=== PATIENT | male | born 2000 | race Caucasian/White ===

== ENCOUNTER 2025-02-13 22:32 | Emergency (ER) | payer BC, SELFPAY ==
[2025-02-13 22:51] VITALS: BP 160/92
--- NOTE | 2025-02-14 01:29 | ED.GENMED ---
History of Present Illness
General
Chief Complaint: Skin Surface Trauma
Source: patient
Exam Limitations: none
Time Seen by Provider: 02/14/25 01:00
History of Present Illness
History of Present Illness:
See MDM
Past History
Past History
ED Past Medical History: None
ED Past Surgical History: None
Social History
Tobacco: Non-smoker
Alcohol: None
Phy Exam
Physical Exam
Physical Exam:
See MDM
Course
Vital Signs
Initial and Last Documented VS:
Initial Vital Signs
Temp Pulse Resp BP Pulse Ox
98.3 F 68 16 160/92 98
02/13/25 22:51 02/13/25 22:51 02/13/25 22:51 02/13/25 22:51 02/13/25 22:51
Last Documented Vital Signs
Temp Pulse Resp BP Pulse Ox
98.3 F 68 16 160/92 98
02/13/25 22:51 02/13/25 22:51 02/13/25 22:51 02/13/25 22:51 02/14/25 01:31
Procedures
Laceration Closure
left lateral thenar eminence :
Status of Wound: clean
Size of Wound in cm: 1.5
Description of Wound Edges: sharp
Preparation: cleaned with Betadine
Anesthesia: 1% Lidocaine with epi
Revision/Debridement: routine- no revision
Wound exploration: explored to base- no FB
Type of Closure: single layer closure
Skin Closure Material: 4-0 nylon
Number of sutures: 3
MDM/Problems Addressed
Differential Diagnosis Includes:
Note:
CHIEF COMPLAINT(S)
Hand cut.
HISTORY OF PRESENT ILLNESS
The patient is a 24-year-old male who presented with a hand cut. The injury occurred earlier today and is described as superficial. The patient reports experiencing pain, but he is able to move his fingers without any difficulty. There was bleeding
initially, which has since subsided. The cut occurred on the right hand, which the patient uses dominantly. The area was not cleaned by the patient at home, and he was advised that hands are prone to infections. The patient expressed a desire for a
simple intervention, such as the use of tissue adhesive (glue), rather than sutures.
PHYSICAL EXAM
General: Alert, no acute distress.
Skin: 1.5 cm laceration to the left thenar eminence. No ligamentous involvement. Distal fingers neurovascular intact
Head: Normocephalic, atraumatic
Neck: Appears supple, trachea midline.
Eyes, Ears, Nose, Mouth, and Throat: Moist mucous membranes
Cardiovascular: No signs of cyanosis
Respiratory: Respirations are non-labored.
Abdomen: Non-distended
Musculoskeletal: No deformities
Neurological: No focal neurological deficit observed.
Psychiatric: Cooperative, appropriate mood and affect.
PLAN
Clean the wound with betadine. Reposition the protruding tissue back into the wound. Place stitches. The patient will be started on prophylactic oral antibiotics due to the risk of infection associated with hand wounds. The patient was not required
to take the antibiotics unless signs of infection develop.
DIFFERENTIAL DIAGNOSIS
- Laceration
- Superficial skin infection
- Soft tissue infection
- Tendon injury
- Nerve injury
- Foreign body in wound
- Abrasion
- Contusion
- Degloving injury
- Fracture
SUMMARY OF ENCOUNTER
The patient was seen for a superficial hand cut. The injury was evaluated, and no significant underlying damage was noted. The superficial nature of the cut allowed for closure with Steri-Strips and tissue adhesive. Due to the high risk of
infection, particularly given the location on the hand, the patient was advised on the use of prophylactic antibiotics.
MEDICATION RECONCILIATION
Prescription for prophylactic oral antibiotics to prevent infection.
MEDICAL DECISION MAKING
- Number and Complexity of Problems Addressed: Superficial hand laceration with a risk of infection.
- Risk: Prescription medication was considered for the prevention of infection. Risks associated with not treating include potential for infection development in a high-risk area.
Disposition:
SUMMARY OF ENCOUNTER
A 24-year-old male presented to the emergency department with a 1.5 cm superficial laceration on his right thenar eminence. The patient reported pain but denied any difficulty with finger movement. Examination revealed the wound to be gaping with no
evidence of ligamentous injury, and the hands nerve function was intact. Despite considering the application of tissue adhesive, the decision was made to close the wound with three sutures due to the gap. Given the location and mechanism of injury,
there was a concern for potential infection.
PLAN
Clean the wound with betadine. Apply three sutures instead of tissue adhesive due to the necessity for better closure. Start the patient on amoxicillin-clavulanate (Augmentin) prophylactically to prevent infection, due to the high risk associated
with the hand wound. The patient is advised to monitor for signs of infection and instructed to return for suture removal in approximately 10 days.
PATIENT EDUCATION AND COUNSELING
The patient was advised on the importance of monitoring the wound for any signs of infection such as increased redness, swelling, warmth, or pus discharge. He was counseled on keeping the wound clean and dry. The patient was informed about the
prophylactic use of antibiotics and the necessity of completing the prescribed course.
FOLLOW-UP INSTRUCTIONS
The patient is advised to return for suture removal in approximately 10 days and to seek medical attention immediately if signs of infection develop.
MEDICATION RECONCILIATION
Prescription provided for amoxicillin-clavulanate (Augmentin) to prevent potential infection due to the hand wound.
MEDICAL DECISION MAKING
- Number and Complexity of Problems Addressed: Superficial hand laceration with a risk of infection.
- Data:
Category 1: Tests and documents were not ordered as the clinical exam was sufficient for diagnosis.
- Risk: Prescription medication was prescribed for infection prophylaxis.
DIAGNOSIS
Superficial laceration of right hand thenar eminence, S61.410A.
*Pulse Oximetry
SaO2: 98
Oxygen Mode of Delivery: Room air
Patient hypoxic: no
*Critical Care Note
Total Time (30-74mins, 75-104mins- exclusive of procedures): Not Applicable
ED Attending Note
-
Portions of this chart may have been created with voice recognition software.� Occasional wrong word or��sound alike� substitutions may have occurred due to the inherent limitations of voice recognition software.
Discharge Plan
Departure
Patient Disposition: Home (Routine Discharge)
Date of Disposition: 02/14/25
Time of Disposition: 01:34
Patient with high blood pressure during this ER visit?: Yes
Discharge Problem:
Hand laceration
Instructions: Laceration Repair With Stitches (DC), BLOOD PRESSURE
Prescriptions:
New
clindamycin HCl 300 mg capsule
300 mg PO TID 5 Days Qty: 15 0RF
Referrals:
Riki Zamarripa MD [Family Provider, Family Practice]
Activity Restrictions/Additional Instructions:
Keep wound clean and dry, change dressing if it becomes soiled or wet. Watch for signs of infection: fever over 100.5', increasing pain, red streaks around wound, swelling, drainage of pus, or bad smell. If any of these happen, return to ED
promptly. Return to ED or make an appointment with your doctor to have the 3 sutures removed in 7-10 days. All wounds may scar, however you may reduce the appearance of scarring by avoiding sun exposure to the scar and applying skin moisturizer
with spf protection to the scar once the wound is healed.
Interventions
Interventions:
*Risk Screen - Suicide Last Done: 02/14/25 00:00
*General Assessment Last Done: 02/14/25 00:00
*Neglect/Abuse Screening Last Done: 02/14/25 00:00
*ED- Fall Risk Assessment Last Done: 02/14/25 00:00
*ED COVID-19 Vaccine History Last Done: 02/14/25 00:00
*ED Influenza Vaccine History Last Done: 02/14/25 00:00
*Nursing Disposition Last Done: 02/14/25 01:45
ED-Skin Assessment Last Done: 02/13/25 23:52
Discharge Date and Time
Discharge Date/Time: 02/14/25 01:45
Print Language: FRISIAN
== END 2025-02-14 01:45 | disposition home or self-care (01) ==
LOC: EMR 22:32
PROVIDERS: EMERGENCY PHYSICIAN Student in an Organized Health Care Education/Training Program; FAMILY PHYSICIAN Family Medicine
DX: S61.411A Laceration without foreign body of right hand, initial encounter (principal); X58.XXXA Exposure to other specified factors, initial encounter; R03.0 Elevated blood-pressure reading, without diagnosis of hypertension
CPT/HCPCS: 99283; 12001

== ENCOUNTER 2025-02-14 08:34 | Emergency (ER) | payer BC, SELFPAY ==
[2025-02-14 08:41] VITALS: BP 137/92
--- NOTE | 2025-02-14 09:12 | ED.SKININJ ---
HPI-Injury
General
Chief Complaint: Skin Surface Trauma
Source: patient
Exam Limitations: none
Time Seen by Provider: 02/14/25 09:01
History of Present Illness-Injury
Initial Injury comments:
24-year-old male presents for reevaluation. He was seen here yesterday for a laceration to the thenar eminence of his left hand. He presented today with complaints of nonblanchable skin around the wound and some associated numbness around the
wound. He denies any function to the thumb or numbness to the thumb.
Past History
Past History
ED Past Medical History: None
ED Past Surgical History: None
Social History
Tobacco: Non-smoker
Alcohol: None
Phy Exam
Physical Exam
Physical Exam:
General: Well-appearing male no acute respiratory distress
Skin: 3 intact Ethilon sutures left thenar eminence. There is a hematoma underneath the wound. The skin is blanchable. He has full function of the left thumb and full sensation of the left thumb. No erythema or lymphangitic streaking
Vascular: Brisk cap refill all fingers left hand
Course
Vital Signs
Initial and Last Documented VS:
Initial Vital Signs
Temp Pulse Resp BP Pulse Ox
98.3 F 86 17 137/92 99
02/14/25 08:41 02/14/25 08:41 02/14/25 08:41 02/14/25 08:41 02/14/25 08:41
Last Documented Vital Signs
Temp Pulse Resp BP Pulse Ox
98.3 F 86 17 137/92 99
02/14/25 08:41 02/14/25 08:41 02/14/25 08:41 02/14/25 08:41 02/14/25 08:41
MDM/Problems Addressed
Differential Diagnosis Includes:
Overall patient looks well upon assessment here. I suspect symptoms today were related to the hematoma that developed under the wound. There is no evidence of vascular or nervous compromise.
Reassured patient. Dressing reapplied. Stable for discharge
*Pulse Oximetry
SaO2: 99
Oxygen Mode of Delivery: Room air
Patient hypoxic: no
*Critical Care Note
Total Time (30-74mins, 75-104mins- exclusive of procedures): Not Applicable
ED Attending Note
-
Portions of this chart may have been created with voice recognition software.� Occasional wrong word or��sound alike� substitutions may have occurred due to the inherent limitations of voice recognition software.
Discharge Plan
Departure
Patient Disposition: Home (Routine Discharge)
Date of Disposition: 02/14/25
Time of Disposition: 09:14
Patient with high blood pressure during this ER visit?: No
Discharge Problem:
Hand laceration
Instructions: Wound Care (DC)
Prescriptions:
No Action
clindamycin HCl 300 mg capsule
300 mg PO TID 5 Days Qty: 15 0RF
Referrals:
Riki Zamarripa MD [Family Provider, Family Practice]
Activity Restrictions/Additional Instructions:
Continue to keep covered. Have sutures removed as directed. Return if worse otherwise
Interventions
Interventions:
*Risk Screen - Suicide Last Done: 02/14/25 08:40
*General Assessment Last Done: 02/14/25 08:40
*Neglect/Abuse Screening Last Done: 02/14/25 08:40
*ED COVID-19 Vaccine History Last Done: 02/14/25 08:40
*ED Influenza Vaccine History Last Done: 02/14/25 08:40
Discharge Date and Time
Print Language: [id number]
== END 2025-02-14 09:41 | disposition home or self-care (01) ==
LOC: EMR 08:34
PROVIDERS: EMERGENCY PHYSICIAN Emergency Medicine; FAMILY PHYSICIAN Family Medicine
DX: S61.412A Laceration without foreign body of left hand, initial encounter (principal); R20.0 Anesthesia of skin; X58.XXXA Exposure to other specified factors, initial encounter; Z88.0 Allergy status to penicillin
CPT/HCPCS: 99281